=== PATIENT | male | born 1945 | race Caucasian/White ===

== ENCOUNTER 2021-03-20 09:16 | Inpatient (IN) | payer MEDICARE ==
[~2021-03-20] VITALS: Ht 177.8 cm; Wt 85.8 kg
[2021-03-20 09:47] LABS: BASO % 0 % (0-3); EOS % 0 % (0-3); HEMATOCRIT 25.3 % (39.0-53.0); HEMOGLOBIN 8.3 g/dL (13.0-17.5); LYMPH # 0.4 x10^3/uL (1.0-4.8); LYMPH % 2 % (24-48); MEAN CORPUSCULAR HEMOGLOBIN 31 pg (25-35); MEAN CORPUSCULAR HGB CONC 33 g/dL (31-37); MEAN CORPUSCULAR VOLUME 94 fL (79-100); MONO # 0.5 x10^3/uL (0.0-1.1); MONO % 2 % (0-9); NEUT # 18.5 x10^3uL (1.8-7.7); NEUT % 95 % (31-73); PLATELET COUNT 384 x10^3/uL (140-400); RED CELL DISTRIBUTION WIDTH 15.3 % (11.5-14.5); WHITE BLOOD COUNT 19.4 x10^3/uL (4.0-11.0)
[2021-03-20 10:00] LABS: ALBUMIN 1.9 g/dL (3.4-5.0); ALBUMIN/GLOBULIN RATIO 0.5 (1.0-1.7); CREATININE 1.2 mg/dL (0.7-1.3); GFR 59.3; TOTAL BILIRUBIN 0.7 mg/dL (0.2-1.0); TOTAL PROTEIN 6.1 g/dL (6.4-8.2)
[2021-03-20 10:05] LABS: POTASSIUM 2.5 mmol/L (3.5-5.1)
[2021-03-20] MEDS: POTASSIUM CHLORIDE 20MEQ 100 ML IV SCH ×2 (10:15→11:15)
--- NOTE | 2021-03-20 10:25 | PHYS DOC ---
Past History Past Surgical History: Other General Adult EDM: Chief Complaint: ALTERED MENTAL STATUS HPI: HPI: 75-year-old male presents with altered mental status. He comes via EMS from his rehabilitation facility. The patient recently had a left leg amputation. There are some discrepancy on the exact date. It was done in [facility]. The patient is not able to answer any my questions. He is able to speak without difficulty but he mostly talks about pain. He answers some simple questions sometimes but he is not aware of his surroundings. No reported fever. Review of Systems: Review of Systems: Unable to perform due to patient's mental status. Current Medications: Current Meds: Current Medications Medications (Trade) Dose Ordered Sig/Chelsy Start Time Stop Time Status Last Admin Dose Admin Lorazepam (Ativan Inj) 2 mg 1X ONCE 03/20/21 09:30 03/20/21 09:50 DC Potassium Chloride 100 ml @ 50 mls/hr Q1H 03/20/21 10:15 03/20/21 12:14 Allergies: Allergies: Allergies Coded Allergies Type Severity Reaction Last Updated Verified diltiazem Allergy Unknown 03/20/21 Yes Physical Exam: PE: Constitutional: Well developed, well nourished, no acute distress. [] HENT: Normocephalic, atraumatic, bilateral external ears normal, oropharynx dry, no oral exudates, nose normal. [] Eyes: PERRLA, EOMI, conjunctiva normal, no discharge. [] Neck: Normal range of motion, no tenderness, supple, no stridor. [] Cardiovascular: Heart rate regular rhythm, no murmur [] Lungs & Thorax: Bilateral breath sounds clear to auscultation [] Abdomen: Bowel sounds normal, soft, no tenderness, umbilical hernia no pulsatile masses. [] Skin: Fluid-filled bullae of the right lower extremity up to the knee [] Back: No tenderness, no CVA tenderness. [] Extremities: Left [id number] amputation [] Neurologic: Alert, moving all extremities, able to speak. [] Psychologic: Unable to assess [] Current Patient Data: Labs: Laboratory Tests Test 03/20/21 09:20 White Blood Count 19.4 x10^3/uL (4.0-11.0) H Red Blood Count 2.70 x10^6/uL (4.30-5.70) L Hemoglobin 8.3 g/dL (13.0-17.5) L Hematocrit 25.3 % (39.0-53.0) L Mean Corpuscular Volume 94 fL (79-100) Mean Corpuscular Hemoglobin 31 pg (25-35) Mean Corpuscular Hemoglobin Concent 33 g/dL (31-37) Red Cell Distribution Width 15.3 % (11.5-14.5) H Platelet Count 384 x10^3/uL (140-400) Neutrophils (%) (Auto) 95 % (31-73) H Lymphocytes (%) (Auto) 2 % (24-48) L Monocytes (%) (Auto) 2 % (0-9) Eosinophils (%) (Auto) 0 % (0-3) Basophils (%) (Auto) 0 % (0-3) Neutrophils # (Auto) 18.5 x10^3uL (1.8-7.7) H Lymphocytes # (Auto) 0.4 x10^3/uL (1.0-4.8) L Monocytes # (Auto) 0.5 x10^3/uL (0.0-1.1) Eosinophils # (Auto) 0.0 x10^3/uL (0.0-0.7) Basophils # (Auto) 0.0 x10^3/uL (0.0-0.2) Platelet Estimate Pending Sodium Level 144 mmol/L (136-145) Potassium Level 2.5 mmol/L (3.5-5.1) *L Chloride Level 107 mmol/L (98-107) Carbon Dioxide Level 30 mmol/L (21-32) Anion Gap 7 (6-14) Blood Urea Nitrogen 20 mg/dL (8-26) Creatinine 1.2 mg/dL (0.7-1.3) Estimated GFR (Cockcroft-Gault) 59.3 BUN/Creatinine Ratio 17 (6-20) Glucose Level 98 mg/dL (70-99) Lactic Acid Level 1.6 mmol/L (0.4-2.0) Calcium Level 8.0 mg/dL (8.5-10.1) L Total Bilirubin 0.7 mg/dL (0.2-1.0) Aspartate Amino Transferase (AST) 34 U/L (15-37) Alanine Aminotransferase (ALT) 43 U/L (16-63) Alkaline Phosphatase 97 U/L (46-116) Total Protein 6.1 g/dL (6.4-8.2) L Albumin 1.9 g/dL (3.4-5.0) L Albumin/Globulin Ratio 0.5 (1.0-1.7) L Vital Signs: Vital Signs Date Time Temp Pulse Resp B/P (MAP) Pulse Ox O2 Delivery O2 Flow Rate FiO2 03/20/21 09:54 99.1 86 20 133/67 91 Room Air EKG: EKG: Sinus rhythm, rate 105, normal axis, no ST elevations or depressions, inverted T waves V3 through V6.[] Radiology/Procedures: Radiology/Procedures: [] Impressions: XR CHEST 1V CLINICAL INDICATIONS: Altered mental status COMPARISON: None available. Findings: Linear density is seen overlying both upper lobes which may be calcified pleural plaques. Decreased lung volumes are seen. No acute lung infiltrate or pleural effusion or pulmonary edema or lung mass or pneumothorax is seen. The heart size, pulmonary vasculature, mediastinum and both marsha are unremarkable. IMPRESSION: No acute radiographic abnormality is seen. Calcified pleural plaques . This may be seen with asbestos exposure or previous trauma. Electronically signed by: Liat Ambrocio MD (03/20/2021 10:53 AM) [id number] DICTATED AND SIGNED BY: LIAT AMBROCIO MD DATE: 03/20/21 1048 CC: DEANDRE SEARS DO ~MTH0 0 Heart Score: C/O Chest Pain: N/A Risk Factors: Risk Factors: DM, Current or recent (<one month) smoker, HTN, HLP, family history of CAD, obesity. Risk Scores: Score 0 - 3: 2.5% MACE over next 6 weeks - Discharge Home Score 4 - 6: 20.3% MACE over next 6 weeks - Admit for Clinical Observation Score 7 - 10: 72.7% MACE over next 6 weeks - Early Invasive Strategies Course & Med Decision Making: Course & Med Decision Making Pertinent Labs and Imaging studies reviewed. (See chart for details) The patient clearly has altered mental status as he is unable to indicate with us very well. He has an elevated white count with left shift. I do not have a source of infection at this time. His chest x-ray is negative for acute findings. I will treat him with a gram of Rocephin. Blood cultures and lactic acid have been drawn. His lactic acid is within normal limits. His EKG is sinus tachycardia. He has potassium of 2.5. We will replace with 40 mEq by IV. The patient appears to have a SIRS presentation. I spoke with the hospitalist, Dr. Maher and he has accepted the patient for admission. [] Dragon Disclaimer: Dragon Disclaimer: This electronic medical record was generated, in whole or in part, using a voice recognition dictation system. Departure Departure: Impression: Primary Impression: Altered mental status Qualified Codes: R41.0 - Disorientation, unspecified Additional Impressions: SIRS (systemic inflammatory response syndrome) Hypokalemia Disposition: ADMITTED INPATIENT Condition: GUARDED DEANDRE SEARS DO Mar 20, 2021 10:25
--- NOTE | 2021-03-20 10:40 | EKG ---
[address] [address] Test Date: 2021-03-20 Test Time: 10:28:43 Pat Name: ERENDIRA STANFORD Department: Room: Gender: M Feather Sawyer: NIXON : 1945 Requested By: DEANDRE SEARS Order Number: [id number] Reading MD: Measurements Intervals [place] Rate: 105 P: -1 IL: 150 QRS: 32 QRSD: 94 T: 188 QT: 370 QTc: 493 Interpretive Statements SINUS TACHYCARDIA ST & T ABNORMALITY, CONSIDER ANTEROLATERAL ISCHEMIA OR LEFT VENTRICULAR STRAIN INFERIOR ISCHEMIA OR LEFT VENTRICULAR STRAIN T ABNORMALITY IN ANTERIOR LEADS ABNORMAL ECG RI6.02 No previous ECG available for comparison
--- NOTE | 2021-03-20 10:56 | RAD ---
XR CHEST 1V CLINICAL INDICATIONS: Altered mental status COMPARISON: None available. Findings: Linear density is seen overlying both upper lobes which may be calcified pleural plaques. D ecreased lung volumes are seen. No acute lung infiltrate or pleural effusion or pulmonary edema or lori ng mass or pneumothorax is seen. The heart size, pulmonary vasculature, mediastinum and both marsha ar e unremarkable. IMPRESSION: No acute radiographic abnormality is seen. Calcified pleural plaques. This may be seen wi th asbestos exposure or previous trauma. Electronically signed by: Clifton Ambrocio MD (03/20/2021 10:53 AM) [id number]
[2021-03-20 11:29] LABS: % BANDS 7 % (0-9); % LYMPHS 1 % (24-48); % METAS 1 % (0-0); % MONOS 2 % (0-10); % SEGS 89 % (35-66); PLT ESTIMATE ADEQUATE (ADEQUATE)
[2021-03-20] MEDS ORDERED: ONDANSETRON PF 4 MG/2 ML VIAL. IVP PRN (11:30)
[2021-03-20] MEDS ORDERED: cefTRIAXone SODIUM 1 GM VIAL ONE (13:19)
[2021-03-20] MEDS ORDERED: IV NORMAL SALINE 50ML 50 ML ONE (13:19)
[2021-03-20 13:33] LABS: AMORPHOUS SEDIMENT,UR PRESENT /HPF; BACTERIA,URINE 0 /HPF (0-FEW); BILIRUBIN,URINE NEG (NEG); CLARITY,URINE CLEAR; COLOR,URINE YELLOW; GLUCOSE,URINE NEG (NEG); NITRITE,URINE NEG (NEG); RBC,URINE OCC /HPF (0-2); SQUAMOUS EPITHELIAL CELL,UR FEW /LPF; UROBILINOGEN,URINE 0.2 mg/dL (0.2 mg/dL)
[2021-03-20 13:53] VITALS: BP 136/59
[2021-03-20] MEDS: IV NORMAL SALINE 1,000ML 1,000 ML IV SCH (14:00)
[2021-03-20 15:33] VITALS: BP 101/60
[2021-03-20] MEDS ORDERED: FINA5TAB4 PO (16:02)
[2021-03-20] MEDS ORDERED: ACET325T21 PO (16:02)
[2021-03-20] MEDS ORDERED: NYST15PO9 TP (16:02)
[2021-03-20] MEDS ORDERED: POLY2500 PO (16:02)
[2021-03-20] MEDS ORDERED: CRESTOR40 MG PO (16:02)
[2021-03-20] MEDS ORDERED: DOCU100T5 PO (16:02)
[2021-03-20] MEDS ORDERED: TAMS0.4C97 PO (16:02)
[2021-03-20] MEDS ORDERED: HYDR-2155 PO (16:02)
[2021-03-20] MEDS ORDERED: CLOP75TA PO (16:02)
[2021-03-20] MEDS ORDERED: FOLI0.8C PO (16:02)
[2021-03-20] MEDS ORDERED: ASCO500T4 PO (16:02)
[2021-03-20] MEDS ORDERED: MELA3TAB43 PO (16:02)
[2021-03-20] MEDS ORDERED: MULT-245 PO (16:02)
[2021-03-20] MEDS ORDERED: FERR325T14 PO (16:02)
[2021-03-20] MEDS ORDERED: OMEP20TA8 PO (16:02)
[2021-03-20] MEDS ORDERED: THIA100T57 PO (16:02)
[2021-03-20] MEDS ORDERED: AMIN30LI2 PO (16:02)
[2021-03-20 18:09] VITALS: BP 132/66
[2021-03-20 19:52] VITALS: BP 135/54
[2021-03-20] MEDS: ACETAMINOPHEN 650 MG SUPP.RECT. PR PRN (22:06)
[2021-03-20 23:18] VITALS: BP 113/56
[2021-03-21] VITALS (10 sets, daily range): BP systolic 107–143; BP diastolic 52–81
[2021-03-21] MEDS: IV NORMAL SALINE 1,000ML 1,000 ML IV SCH ×2 (00:39→19:57)
[2021-03-21 07:35] LABS: BASO % 0 % (0-3); EOS % 0 % (0-3); HEMATOCRIT 21.1 % (39.0-53.0); LYMPH # 0.6 x10^3/uL (1.0-4.8); LYMPH % 7 % (24-48); MEAN CORPUSCULAR HEMOGLOBIN 32 pg (25-35); MEAN CORPUSCULAR HGB CONC 33 g/dL (31-37); MEAN CORPUSCULAR VOLUME 97 fL (79-100); MONO # 0.4 x10^3/uL (0.0-1.1); MONO % 5 % (0-9); NEUT # 7.8 x10^3uL (1.8-7.7); NEUT % 88 % (31-73); PLATELET COUNT 300 x10^3/uL (140-400); RED BLOOD COUNT 2.17 x10^6/uL (4.30-5.70); RED CELL DISTRIBUTION WIDTH 15.1 % (11.5-14.5); WHITE BLOOD COUNT 8.8 x10^3/uL (4.0-11.0)
[2021-03-21 07:37] LABS: CALCIUM 7.6 mg/dL (8.5-10.1); GFR 73.2
[2021-03-21 07:44] LABS: HEMOGLOBIN 6.9 g/dL (13.0-17.5); POTASSIUM 2.9 mmol/L (3.5-5.1)
[2021-03-21] MEDS ORDERED: ACETAMINOPHEN 325 MG TABLET PO PRN (08:15)
[2021-03-21] MEDS ORDERED: diphenhydrAMINE ORAL ELIXIR 12.5 MG/5 ML ML PO PRN (08:15)
[2021-03-21] MEDS: MORPHINE SULFATE 4 MG/ML DISP.SYRIN. IV PRN ×6 (09:08→23:36)
[2021-03-21] MEDS: POTASSIUM CHLORIDE 10MEQ 100 ML IV SCH ×4 (09:16→13:05)
--- NOTE | 2021-03-21 13:02 | HP ---
CHIEF COMPLAINT: Altered mentation. HISTORY OF PRESENT ILLNESS: The patient is a 75-year-old gentleman from a local rehab facility. He has altered mentation. He is confused. He is screaming, unable to communicate, mainly he groans and moans. He had extensive workup in the ED yesterday. Chest x-ray was unremarkable for any acute intrapulmonary process. Blood cultures were drawn. He was given medications to calm him down, there is no seizure activity. Most likely, the patient has some sort of systemic inflammatory response syndrome. He was admitted for IV hydration, fluids, and monitoring. He is a full code. I did not have any family history. He has a common-law , he has lived with for the last 40 years. We are trying to find out who has power of air defense artillery senior sergeant. PAST MEDICAL HISTORY: Significant for peripheral vascular disease. I do not find evidence of diabetes at this time. Once again records are sketchy as he cannot give history. MEDICATIONS: Medications from the rehab facility includes ascorbic acid, Plavix, ferrous sulfate, finasteride, folic acid, hydrocodone, melatonin, nystatin, omeprazole, MiraLax, Crestor, Flomax, and thiamine. SOCIAL HISTORY: Alcohol history is unclear. Smoking history unknown. ALLERGIES: HE HAS ALLERGIES TO DILTIAZEM. FAMILY HISTORY: Unobtainable. REVIEW OF SYSTEMS: Unobtainable. PHYSICAL EXAMINATION: GENERAL: When I saw him, this is an obtunded elderly gentleman who is nonverbal. He was groaning. VITAL SIGNS: Initial vital signs showed blood pressure 135/70, pulse is 84 and regular, he was afebrile, oxygen saturation 98% on 2 L by nasal cannula. HEENT: Head is without trauma. Pupils are reactive. Sclerae nonicteric. Oropharynx is clear. NECK: Supple, no bruits identified. LUNGS: Shallow respirations. CARDIOVASCULAR: Showed regular heart tones. No gallops. ABDOMEN: Soft. EXTREMITIES: Showed no edema of the right leg. There is surgical absence of the left lower extremity above the knee. The stump appears clean. NEUROLOGIC: The patient is bedridden. He is nonverbal and groaning. PERTINENT LABORATORY STUDIES: Cultures have been ordered and pending. Hemoglobin was 8.3 g, repeated was down to 6.9 g. Blood has been ordered. White count 19,400. Potassium 2.9 mEq, sodium 147, creatinine is 1.0 mg/dL. ASSESSMENT: 1. A 75-year-old gentleman with systemic inflammatory response syndrome. 2. Altered mentation. 3. Underlying dementia. 4. Anemia of chronic disease. 5. Peripheral vascular disease with recent left above knee amputation. 6. Symptomatic anemia. PLAN: 1. Admit to the inpatient unit. 2. Packed red cells have been ordered to increase oxygen carrying capacity in this symptomatic patient. 3. Empiric fluids. 4. Empiric antibiotics. 5. Minimize narcotics. 6. I will try to contact family as to find out who is the power of air defense artillery senior sergeant. Prognosis is guarded. 7. Empiric antibiotics have been ordered, pending cultures. AVI/MAIRA/HEIDI DR: Frances TID: [id number]
[2021-03-21 19:11] LABS: ALBUMIN 1.3 g/dL (3.4-5.0); ALBUMIN/GLOBULIN RATIO 0.3 (1.0-1.7); CALCIUM 7.7 mg/dL (8.5-10.1); GFR 73.2; TOTAL BILIRUBIN 0.5 mg/dL (0.2-1.0); TOTAL PROTEIN 5.1 g/dL (6.4-8.2)
[2021-03-21 19:17] LABS: BASO % 0 % (0-3); EOS % 1 % (0-3); HEMATOCRIT 24.2 % (39.0-53.0); LYMPH # 0.8 x10^3/uL (1.0-4.8); LYMPH % 10 % (24-48); MEAN CORPUSCULAR HEMOGLOBIN 31 pg (25-35); MEAN CORPUSCULAR HGB CONC 33 g/dL (31-37); MEAN CORPUSCULAR VOLUME 95 fL (79-100); MONO # 0.4 x10^3/uL (0.0-1.1); MONO % 4 % (0-9); NEUT # 7.1 x10^3uL (1.8-7.7); NEUT % 85 % (31-73); PLATELET COUNT 335 x10^3/uL (140-400); RED BLOOD COUNT 2.56 x10^6/uL (4.30-5.70); RED CELL DISTRIBUTION WIDTH 15.3 % (11.5-14.5); WHITE BLOOD COUNT 8.3 x10^3/uL (4.0-11.0)
[2021-03-21] MEDS: LACTOBACILLUS RHAMNOSUS GG 1 CAPSULE. PO SCH (19:57)
[2021-03-22] MEDS: MORPHINE SULFATE 4 MG/ML DISP.SYRIN. IV PRN ×2 (02:45→05:27)
[2021-03-22 06:01] VITALS: BP 109/77
--- NOTE | 2021-03-22 09:04 | PN ---
DATE: 03/22/2021 ATTENDING PHYSICIAN: Dr. Maher. SUBJECTIVE: Confused and screaming pain. We are switching to fentanyl to see if it will give him some relief. The morphine unfortunately has not relieved the pain completely. OBJECTIVE FINDINGS: VITAL SIGNS: Blood pressure this morning is 109/77, pulse is 90 and regular, oxygen saturation 94% on room air. He is afebrile. HEENT: Head is without trauma. Pupils are reactive. Sclerae nonicteric. Oropharynx clear. NECK: Supple. LUNGS: Shallow respirations. CARDIOVASCULAR: Showed distant heart tones. No gallops. Peripheral pulses are palpable. ABDOMEN: Obese. No guarding. EXTREMITIES: Show surgical absence of the left leg above the knee. LABORATORY DATA: Cultures are pending at this time. They are negative at 24 hours. Hemoglobin has been transfused up to 8.0 mg/dL. Electrolytes showed sodium 149, potassium 3.0 mEq, creatinine is 1.0. ASSESSMENT: 1. A 75-year-old gentleman with obtundation. 2. Systemic inflammatory response syndrome. 3. Anemia of chronic disease, transfused. 4. Hypernatremia due to saline infusion. 5. Underlying dementia with agitation. PLAN: 1. The power of attorney lawyer has called. He has no other family members. He is a DNR per advanced directive. 2. We will convert saline to D5W. 3. Potassium replacement. 4. Pending cultures. Continue antibiotics. 5. Disposition pending what transpires in the next several days. AVI/SILVA DR: AVI/tg TID: [id number]
[2021-03-22] MEDS ORDERED: IV DEXTROSE 5%-LACT RINGERS 1,000 ML IV SCH (09:30)
[2021-03-22] MEDS: POTASSIUM CHLORIDE 20 MEQ TABLET.ER. PO SCH ×2 (10:21→19:35)
[2021-03-22] MEDS: LACTOBACILLUS RHAMNOSUS GG 1 CAPSULE. PO SCH ×2 (10:21→19:35)
[2021-03-22] MEDS: IV DEXTROSE 5% 1,000 ML IV SCH (10:29)
[2021-03-22 10:36] VITALS: BP 133/64
[2021-03-22 15:29] VITALS: BP 146/64
[2021-03-22 19:41] VITALS: BP 174/64
[2021-03-22 23:30] VITALS: BP 165/67
[2021-03-23] MEDS: IV DEXTROSE 5% 1,000 ML IV SCH ×2 (02:47→12:06)
[2021-03-23 06:16] VITALS: BP 159/73
[2021-03-23] MEDS: LACTOBACILLUS RHAMNOSUS GG 1 CAPSULE. PO SCH ×2 (08:10→21:05)
[2021-03-23] MEDS: POTASSIUM CHLORIDE 20 MEQ TABLET.ER. PO SCH ×2 (08:11→21:05)
[2021-03-23 10:58] VITALS: BP 135/64
[2021-03-23] MEDS: ACETAMINOPHEN 650 MG SUPP.RECT. PR PRN (14:13)
[2021-03-23] MEDS ORDERED: ACETAMINOPHEN 650 MG SUPP.RECT. PR PRN (14:15)
[2021-03-23 14:55] VITALS: BP 143/57
[2021-03-23 19:44] VITALS: BP 145/60
[2021-03-24] MEDS: IV DEXTROSE 5% 1,000 ML IV SCH ×2 (03:46→18:00)
[2021-03-24 05:31] VITALS: BP 150/66
[2021-03-24] MEDS: ACETAMINOPHEN 650 MG SUPP.RECT. PR PRN (05:34)
[2021-03-24] MEDS: LACTOBACILLUS RHAMNOSUS GG 1 CAPSULE. PO SCH ×2 (07:46→21:41)
[2021-03-24] MEDS: POTASSIUM CHLORIDE 20 MEQ TABLET.ER. PO SCH ×2 (07:46→21:41)
--- NOTE | 2021-03-24 09:04 | PN ---
DATE: 03/23/2021 ATTENDING PHYSICIAN: Dr. Maher. SUBJECTIVE: He is calmer. The fentanyl seems to be relieving his pain. He is still profoundly demented and unable to follow any commands. OBJECTIVE FINDINGS: VITAL SIGNS: Blood pressure is 159/73, pulse 92 and regular. He is afebrile. Oxygen saturation 94% on room air. HEENT: Head is without trauma. Pupils are reactive. Sclerae nonicteric. Oropharynx clear. NECK: Supple, no bruits. LUNGS: Good breath sounds. CARDIOVASCULAR: Regular heart tones. ABDOMEN: Soft. There is no guarding or rebound tenderness. Bowel sounds were hypoactive. There are no masses palpated. EXTREMITIES: Showed surgical absence of the left leg above the knee. ASSESSMENT: 1. A 75-year-old gentleman with obtundation. 2. Systemic inflammatory response syndrome. Cultures have been negative. 3. Anemia of chronic disease, transfused. 4. Hypernatremia due to saline infusion. 5. Underlying dementia with agitation. PLAN: 1. Continue dilute D5W. 2. Serial chemistries. 3. Fentanyl for pain. 4. Recs per Psychiatry Service whether he would be a candidate for the [facility]. AVI/MAGGY/PAVEL DR: AVI/tg TID: [id number]
[2021-03-24 11:13] VITALS: BP 137/62
[2021-03-24 16:25] VITALS: BP 151/75
[2021-03-24 18:58] LABS: CALCIUM 7.6 mg/dL (8.5-10.1); GFR 73.2
[2021-03-24 20:49] VITALS: BP 164/69
[2021-03-24] MEDS: POTASSIUM CL 40MEQ D5-0.45NACL 1,000 ML IV SCH (22:32)
[2021-03-25 05:47] VITALS: BP 161/67
--- NOTE | 2021-03-25 06:35 | RAD ---
XR CHEST 1V Clinical Indication: Reason: recurrent fever / Spl. Instructions: / History: Comparison: AP chest, March 20, 2021. Findings: Probable bilateral calcified pleural plaques are redemonstrated. There are new bilateral perihilar an d basilar airspace opacities The cardiomediastinal silhouette is stable. There is no pneumothorax. No pleural effusion is appreciated. No acute bone abnormality. IMPRESSION: There are new bilateral perihilar and basilar airspace opacities. Electronically signed by: Aries Hunt MD (03/25/2021 6:33 AM) [facility] MEDICAL CENTERHelga
[2021-03-25 07:02] LABS: HEMATOCRIT 22.6 % (39.0-53.0); HEMOGLOBIN 7.6 g/dL (13.0-17.5); RED BLOOD COUNT 2.43 x10^6/uL (4.30-5.70); RED CELL DISTRIBUTION WIDTH 15.4 % (11.5-14.5); WHITE BLOOD COUNT 6.4 x10^3/uL (4.0-11.0)
--- NOTE | 2021-03-25 07:16 | PN ---
DATE: 03/24/2021 SUBJECTIVE: The patient is resting, slightly popped up in bed, in no apparent respiratory distress. He continued to be encephalopathic. He does open his eyes, but does not track or follow command. Continued to spike his temperature up to ____ this morning. OBJECTIVE: GENERAL: When I examined him, he looked somewhat pale. Not jaundiced or cyanosed. No lymphadenopathy. No thyromegaly. No jugular venous distention. No lower limb edema. VITAL SIGNS: His heart rate was 102, blood pressure was 151/75, temperature was 98.2, respiratory rate was 18, and oxygen saturation was 94%. HEAD, EYES, EARS, NOSE, AND THROAT: Normocephalic, atraumatic. NECK: Supple. HEART: Showed normal first and second heart sounds. No gallop, rub, or murmur. CHEST: Clear to auscultation. No crepitation or rhonchi. ABDOMEN: Distended, soft, nontender. No guarding or rigidity. No organomegaly. All hernial orifice intact. Bowel sounds normal. NEUROLOGIC: He is encephalopathic. He does open his eyes spontaneously, but does not track or follow command. He has left above-knee amputation. Has multiple wounds on his lower extremities including the above left knee amputation stump. His intake over the last 24 hours was 1600, no output was recorded. LABORATORY DATA: The most recent one was done on 03/21 showed a white cell count of 8300, hemoglobin 8, hematocrit 24, MCV 95, and platelet count of 335,000. His chemistry again done on 03/21 showed serum sodium 149, potassium 3, chloride 114, bicarbonate 28, anion gap of 7, BUN 20, creatinine 1, estimated GFR was 73 mL per minute. His glucose 115, calcium was 7.7. Total bilirubin, AST, ALT, alkaline phosphatase were normal. Total protein was 5.1, albumin was 1.3. ASSESSMENT: 1. Altered mental status. The patient continued to be encephalopathic. He does open his eyes spontaneously, but does not track or follow commands. 2. The patient continued to have episodes of fever, although so far his blood culture has grown actually Pseudomonas putida group, sensitive to ceftriaxone and ciprofloxacin as well as levofloxacin. In summary, this is a 75-year-old male patient who was admitted with an altered mental status. Unfortunately, he continued to be encephalopathic. He has gram-negative bacteremia with growth of Pseudomonas putida group, sensitive to ceftriaxone, ciprofloxacin, as well as levofloxacin. The patient has multiple medical problems including hypertension, hyperlipidemia, alcohol dependence, peripheral vascular disease, status post left above-knee amputation done at the [facility], dysphagia, cognitive communication deficit. He has also hypernatremia and hypokalemia. PLAN: My plan is to repeat all his lab work including also some of the inflammatory markers. I did stat lab in the form of BMP to see his potassium and sodium. I would probably switch him to D5W with 40 mEq of potassium chloride if his labs continued to show hypernatremia and hypokalemia. I will also arrange for him to have repeat his chest x-ray and his lab work again tomorrow. According to the nursing staff at ____, the patient was at [facility] in [place], [place], where he underwent left above-knee amputation, and from there, he went to a [facility] facility for about 5 days and transferred to ____ on 03/11/2021. The patient normally is alert and oriented x 2 to 3. He is mostly wheelchair bound and uses Nathen lift. He used to be able to feed himself according to nursing staff. CECI/DARLINE/JEAN DR: Ian TID: [id number]
[2021-03-25 07:26] LABS: ALBUMIN 1.2 g/dL (3.4-5.0); ALBUMIN/GLOBULIN RATIO 0.3 (1.0-1.7); C REACTIVE PROTEIN 76.9 mg/L (0-3.3); CALCIUM 7.4 mg/dL (8.5-10.1); GFR 73.2; POTASSIUM 3.4 mmol/L (3.5-5.1); TOTAL BILIRUBIN 0.3 mg/dL (0.2-1.0); TOTAL PROTEIN 4.9 g/dL (6.4-8.2)
[2021-03-25] MEDS: LACTOBACILLUS RHAMNOSUS GG 1 CAPSULE. PO SCH ×2 (07:35→20:20)
[2021-03-25] MEDS: POTASSIUM CHLORIDE 20 MEQ TABLET.ER. PO SCH ×2 (07:40→20:21)
[2021-03-25] MEDS: POTASSIUM CL 40MEQ D5-0.45NACL 1,000 ML IV SCH ×2 (07:41→20:20)
[2021-03-25 11:12] VITALS: BP 118/66
[2021-03-25 15:21] VITALS: BP 147/81
[2021-03-25 20:34] VITALS: BP_SYST 148; BP_SYST 157; BP_DIAS 54; BP_DIAS 70
--- NOTE | 2021-03-25 23:37 | DS ---
DATE OF DISCHARGE: 03/25/2021 HOSPITAL COURSE: The patient is a 75-year-old male patient, a resident at [facility] who was admitted to [facility] Emergency Room with altered mental status. He apparently was at [facility] where he underwent a left above-knee amputation and was admitted from there to a [facility] facility in [place], [place] for about a week and from there, he was transferred to [facility] for rehabilitation; however, he became encephalopathic and was brought to the Emergency Room for further evaluation. He was extensively evaluated and he obviously has marked leukocytosis. His chemistry showed that he has hyponatremia and hyperkalemia and his blood cultures have grown Pseudomonas putida, sensitive to levofloxacin and ciprofloxacin. Despite treatment with IV antibiotics and correction of his metabolic abnormalities, he continued to be extremely encephalopathic and apparently, our social worker masters spoke with his DPOA, ____ who agreed to admit him to hospice and therefore, the patient will be discharged. Apparently, there are no beds at [facility] and therefore, the patient will be accepted at [place], [place] and from there, he will be admitted to a skilled with transition to hospice care under patient's VA benefit. PHYSICAL EXAMINATION: GENERAL: When I saw him this afternoon, the patient continued to be encephalopathic, pale, but not jaundiced or cyanosed. No lymphadenopathy, no thyromegaly, no jugular venous distention. No lower limb edema. VITAL SIGNS: His heart rate was 98, blood pressure was 157/81, temperature was 98, respiratory rate was 19 and oxygen saturation was 94%. HEAD, EYES, EARS, NOSE, AND THROAT: Normocephalic, atraumatic. NECK: Supple. HEART: Showed normal first and second heart sounds, no gallop or murmur. CHEST: Clear to auscultation. No crepitation or rhonchi. ABDOMEN: Distended, soft, nontender. NEUROLOGIC: He continued to be encephalopathic. He does open his eyes, tracks but does not really follow commands. He moves his both upper extremities without difficulty. EXTREMITIES: He has left above-knee amputation. INTAKE AND OUTPUT: His intake was 430, no output was recorded. LABORATORY DATA: Showed a white cell count of 6400, hemoglobin 7.6, hematocrit 23, MCV 93 and platelet count 252,000. His chemistry showed a serum sodium 146, potassium 3.4, chloride 115, bicarbonate 28, anion gap of 5, BUN 16, creatinine 1, estimated GFR was 73 mL per minute. His glucose was 112, calcium was 7.4. Total bilirubin and alkaline phosphatase were normal. AST, ALT slightly elevated, total protein was 4.9, albumin was 1.2. He was discharged to [place], [place] to continue on all his medications. FINAL DISCHARGE DIAGNOSES: Altered mental status. The patient continued to be encephalopathic despite treatment of the infection and also correction of all his metabolic abnormalities. His sodium has normalized. Other medical problems include severe peripheral vascular disease, status post left above-knee amputation, gram-negative bacteremia with growth of Pseudomonas putida group. Other medical problems include hypertension, hyperlipidemia, alcohol dependence, peripheral vascular disease, cognitive communication deficit, hypernatremia and hypokalemia. MY/PAVEL DR: Ian TID: [id number]
[2021-03-26 05:26] VITALS: BP 102/66
== END 2021-03-26 10:45 | DRG 70 ==
LOC: ER 09:16 → 1 SOUTH 11:30
PROVIDERS: ADMIT Hospitalist; ATTEND Hospitalist
DX: G93.41 Metabolic encephalopathy (principal); E43 Unspecified severe protein-calorie malnutrition; E87.0 Hyperosmolality and hypernatremia; R65.10 Systemic inflammatory response syndrome (SIRS) of non-infectious origin without acute organ dysfunction; F03.91 Unspecified dementia, unspecified severity, with behavioral disturbance; E87.1 Hypo-osmolality and hyponatremia; E87.6 Hypokalemia; I73.9 Peripheral vascular disease, unspecified; D63.8 Anemia in other chronic diseases classified elsewhere; I10 Essential (primary) hypertension; E78.5 Hyperlipidemia, unspecified; E87.5 Hyperkalemia; D72.829 Elevated white blood cell count, unspecified; F10.20 Alcohol dependence, uncomplicated; Z51.5 Encounter for palliative care; Z88.8 Allergy status to other drugs, medicaments and biological substances; Z89.612 Acquired absence of left leg above knee; Z68.27 Body mass index [BMI] 27.0-27.9, adult; Z20.822 Contact with and (suspected) exposure to COVID-19
CPT/HCPCS: 36415; 36430; 71045; 80048; 80053; 81001; 83605; 83880; 84484; 85007; 85025; 85027; 85651; 86140; 86850; 86900; 86901; 86920; 87040; 87077; 87186; 87205; 87426; 93005; J0696; J1956; J2060; J2270; J3010; J3480; J7042; P9016; U0003; 99285-25; J7030